=== PATIENT | male | born 1985 | race African-American/Black ===

== ENCOUNTER 2016-08-18 18:05 | Emergency (ER) | payer OTHER ==
[~2016-08-18] VITALS: Ht 177.8 cm; Wt 86.2 kg
[~2016-08-18 18:05] MED LIST: CYCLOBENZAPRINE5 MG PO; EXCEDRIN CAPLE1 EACH PO; FLEXERIL PO; IBUPROFEN 800800 M1 PO; NOHOMEMEDICATIONS; NORCO 5-325 TA1 EACH PO; VICODIN 5-3001 EACH PO
[2016-08-18 18:36] LABS: ABSOLUTE NEUTROPHILS 2.9 thou/uL (1.4-8.2); BASOPHILS 0.7 % (0.0-2.0); EOSINOPHILS 1.6 % (0.0-3.0); HEMATOCRIT 45.5 % (42.0-52.0); HEMOGLOBIN 15.7 gm/dL (14.0-18.0); LYMPHOCYTES 47.3 % (24.0-44.0); MCH 31.7 pg (26.0-34.0); MCHC 34.5 % (28.0-37.0); MCV 91.9 fL (80.0-100.0); MONOCYTES 8.3 % (1.0-8.0); PLATELET COUNT 309 thou/uL (150-400); POLYS 42.1 % (36.0-66.0); RBC 4.96 mil/uL (4.50-6.00); RDW 13.8 % (10.5-14.5); WBC 6.9 thou/uL (4.0-11.0)
[2016-08-18 18:38] LABS: MANUAL DIFF NO
[2016-08-18 18:45] LABS: CALCIUM 8.6 mg/dL (8.5-10.1); POTASSIUM 3.7 mmol/L (3.5-5.1)
[2016-08-18 18:51] LABS: ALBUMIN 3.9 g/dL (3.4-5.0); TOTAL BILIRUBIN 0.4 mg/dL (<0.1-1.0)
[2016-08-18 19:15] LABS: URINE BILIRUBIN NEGATIVE (Negative); URINE BLOOD NEGATIVE (Negative); URINE COLOR YELLOW; URINE GLUCOSE-RANDOM* NEGATIVE (Negative); URINE KETONES NEGATIVE (Negative); URINE NITRITE NEGATIVE (Negative); URINE PROTEIN (DIPSTICK) NEGATIVE (Negative); URINE SPECIFIC GRAVITY >= 1.030 (1.003-1.035); URINE UROBILINOGEN 0.2 E.U./dl (0.2-1.0)
[2016-08-18] MEDS ORDERED: BENTYL 10 MG CA10 M1 PO (19:16)
[2016-08-18] MEDS ORDERED: ONDANSETRON HCL4 M2 PO (19:16)
[2016-08-18 20:06] VITALS: BP 118/64
== END 2016-08-18 20:06 | disposition home or self-care (01) ==
LOC: ER 18:05
PROVIDERS: Nurse Practitioner Family
DX: R11.2 Nausea with vomiting, unspecified (principal); R19.7 Diarrhea, unspecified; R50.9 Fever, unspecified; R10.84 Generalized abdominal pain; F17.210 Nicotine dependence, cigarettes, uncomplicated; F10.99 Alcohol use, unspecified with unspecified alcohol-induced disorder

== ENCOUNTER 2017-08-08 17:21 | Emergency (ER) | payer OTHER ==
[~2017-08-08] VITALS: Ht 182.9 cm; Wt 81.7 kg
[~2017-08-08 17:21] MED LIST changes: +BENTYL 10 MG CA10 M1 PO; +ONDANSETRON HCL4 M2 PO
[2017-08-08] MEDS ORDERED: HYDROCODONE-AP1 EAC6 PO (17:57)
[2017-08-08] MEDS ORDERED: PENICILLIN V P500 MG PO (17:57)
== END 2017-08-08 18:11 ==
LOC: ER 17:21
DX: K08.89 Other specified disorders of teeth and supporting structures (principal); K05.10 Chronic gingivitis, plaque induced

== ENCOUNTER 2017-08-27 13:34 | Emergency (ER) | payer OTHER ==
[~2017-08-27] VITALS: Ht 175.3 cm; Wt 83.9 kg
[~2017-08-27 13:34] MED LIST changes: +HYDROCODONE-AP1 EAC6 PO; +PENICILLIN V P500 MG PO
[2017-08-27] MEDS ORDERED: NAPROSYN500 MG PO (13:54)
== END 2017-08-27 14:25 | disposition home or self-care (01) ==
LOC: ER 13:34
DX: K02.9 Dental caries, unspecified (principal); K00.7 Teething syndrome; G43.909 Migraine, unspecified, not intractable, without status migrainosus; F17.210 Nicotine dependence, cigarettes, uncomplicated